=== PATIENT | female | born 1980 | race Caucasian/White ===

== ENCOUNTER → 2017-05-17 | Day surgery (SDC) | payer OTHER ==
[~2017-05-17] VITALS: Ht 162.6 cm; Wt 58.2 kg
[~2017-05-17] MED LIST: CHLORHEXIDINE GLUCONATE 2 % 1 PACK (2 CLOTHS) TOPICAL PRN; CLAR10CA3 PO; DEXAMETHASONE SOD PHOS 4 MG/ML VIAL IV ONE; DO NOT ADM ANY ANTICOAGULANT DRUGS PRN; FLUT50SP EACH NARE; KETOROLAC TROMETHAMINE 30 MG/ML (IVP) VIAL IV PUSH ONE; LACTATED RINGER'S 1000 ML IV PRN; LIDOCAINE 1%/EPINEPHrine 1:100,000 SOLN 50 ML VIAL ONE; LIDOCAINE HCL 1% PF 5 ML SYRINGE OTHER ONE; METOPROLOL TARTRATE 25 MG TAB PO PRN; MIDAZOLAM HCL 2 MG/2 ML VIAL IV ONE; ONDANSETRON HCL 4 MG/2 ML VIAL IV PUSH ONE; ONDANSETRON HCL 4 MG/2 ML VIAL IV PUSH PRN; POVIDONE IODINE 5% (ANTISEPSIS KIT) 4 APPLICATIONS EACH NARE PRN; PROPOFOL 200 MG/20 ML AMP IV ONE; SODIUM CHLORID 0.9% 500 ML IV PRN; SPRI28TA PO; oxyCODONE/ACETAMINOPHEN 5 MG/325 MG TAB PO PRN
--- NOTE | 2017-05-17 08:25 | MH ---
cc: GERRY BRADLEY M.D. DATE OF ADMISSION 05/17/2017 HISTORY OF PRESENT ILLNESS The patient is a 36-year-old white female, G0 who presented to my office in April for a second opinion concerning recent colpos and Pap smears. It appears that she had a Pap smear with ASCUS, HPV positive. The colposcopy revealed MAKAYLA 3 on the ectocervix and the endocervix. Currently, the patient is without any other complaints. PAST SURGICAL HISTORY Sinus surgery and breast biopsy. PAST MEDICAL HISTORY Migraines. MEDICATIONS Currently are Sprintec continuously. ALLERGIES To medicines are none. SOCIAL HISTORY No tobacco. Rare alcohol. No drug use. 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 GYNECOLOGIC HISTORY No prior abnormal Paps. No history of STDs. OBSTETRICAL HISTORY G0. PHYSICAL EXAMINATION VITAL SIGNS: Her weight is 127, blood pressure 138/88, pulse of 70. BREASTS: Without masses, nodes or discharge. CHEST: Clear to auscultation bilaterally. CARDIAC: Regular rate and rhythm without murmur or gallop. ABDOMEN: Soft, nontender, nondistended. No hepatosplenomegaly. No hernias. PELVIC EXAMINATION: Vulva, vagina, normal external female genitalia without lesions. Vaginal vault without lesions. Cervix without any visible lesions. Uterus normal size, nontender, no adnexal masses. ASSESSMENT/PLAN MAKAYLA 3 of the endo and ectocervix. Plan will be for a cold knife cone biopsy. MD MALU Alfredo/EO /1:41 PM /8:20 AM
[2017-05-17 15:52] VITALS: BP 150/94; PULSE 80; RESP 20; TEMP 98.1; O2SAT 100
--- NOTE | 2017-05-18 13:04 | MP ---
cc: GERRY BRADLEY M.D. DATE OF SURGERY 05/17/2017 PREOPERATIVE DIAGNOSIS MAKAYLA-III of the ecto and endocervix. POSTOPERATIVE DIAGNOSIS MAKAYLA-III of the ecto and endocervix. PROCEDURE PERFORMED A cold knife cone biopsy. OPERATING SURGEON Gerry Bradley MD ANESTHESIA General endotracheal FINDINGS AT SURGERY Included a nulliparous cervix with a large ectropion. BLOOD LOSS Minimal COMPLICATIONS None PROCEDURE IN DETAIL After proper consents were obtained, the patient was taken to the operating room where general endotracheal anesthesia was applied. She was then placed in dorsolithotomy position, sterilely prepped and draped. At this time, a weighted speculum was placed in the vaginal vault. I placed two stay sutures of 0 Vicryl at 3 and 9 o'clock. I then injected a lidocaine with epinephrine solution at the 5 and 7 o'clock and 10 and 2 o'clock positions. I then used a sharp knife and performed a cone biopsy. Once that was removed, I performed an ECC above the cone biopsy. I then achieved hemostasis in the cervical bed with the Bovie cautery. I then went ahead and ran the stay suture from 3 o'clock to 9 o'clock in a running interlocking fashion and then from 9 o'clock to 3 o'clock in a running interlocking fashion. Hemostasis was assured. I filled the cervical bed with Surgicel and tied that over with the remaining remnants from the 3 and 9 o'clock stay sutures. At this time, hemostasis was assured. Counts were correct. All instruments were removed and the patient was stable to the recovery room. MD MALU Alfredo/NENITA /9:40 AM /12:52 PM
== END | disposition home or self-care (01) ==
LOC: HSDC 10:21
PROVIDERS: ATTEND Obstetrics & Gynecology
DX: D06.0 Carcinoma in situ of endocervix (principal); D06.1 Carcinoma in situ of exocervix
CPT/HCPCS: 00940; 57520; 84703; 88305; 88307; J1885; J1100; J2250; J2405; J3010